=== PATIENT | female | born 1985 | race Caucasian/White ===

== ENCOUNTER 2020-01-13 08:59 | Day surgery (SDC) | payer BC ==
[2020-01-12 15:51] LABS: BASOPHILS % (AUTO) 0.2 % (0-1); EOSINOPHILS # (AUTO) 0.2 X10'3 (0-0.9); EOSINOPHILS % (AUTO) 1.4 % (0-6); LYMPHOCYTES # (AUTO) 2.5 X10'3 (1.1-4.8); LYMPHOCYTES % (AUTO) 21.9 % (21-51); MEAN CORPUSCULAR HEMOGLOBIN 29.1 PG (27.0-31.0); MEAN CORPUSCULAR HGB CONC 34.4 g/dL (33.0-36.5); MEAN CORPUSCULAR VOLUME 84.6 FL (78-98); MEAN PLATELET VOLUME 7.7 FL (7.4-10.4); MONOCYTES # (AUTO) 0.6 X10'3 (0-0.9); MONOCYTES % (AUTO) 5.5 % (2-12); PRE OP HEMATOCRIT 40.3 % (35.0-45.0); PRE OP HEMOGLOBIN 13.9 g/dL (12.0-16.0); PRE OP PLATELET COUNT 415 X10'3 (140-440); RED BLOOD COUNT 4.77 X10'6 (4.20-5.60)
[2020-01-12 16:16] LABS: ALBUMIN 3.5 G/DL (3.4-5.0); ALBUMIN/GLOBULIN RATIO 0.8 (1.1-1.5); ALKALINE PHOSPHATASE 65 IU/L (46-116); BLOOD UREA NITROGEN 12 MG/DL (7-18); BUN/CREATININE RATIO 12.4 (6.6-38.0); CALCIUM 9.2 MG/DL (8.5-10.1); CHLORIDE 101 MMOL/L (99-107); CREATININE 0.97 MG/DL (0.40-0.90); PRE OP ALT 21 U/L (30-65); PRE OP ANION GAP 9 (8-16); PRE OP AST 13 U/L (10-37); PRE OP BILIRUB, TOTAL 0.3 MG/DL (0.0-1.0); PRE OP GLUCOSE 165 MG/DL (70-104); PRE OP POTASSIUM 3.4 MMOL/L (3.4-5.1); PRE OP SODIUM 138 MMOL/L (135-145); TOTAL CARBON DIOXIDE 27.7 MMOL/L (24-32); eGFR 65 ML/MIN
[2020-01-12 16:47] LABS: HCG SERUM QL NEGATIVE
[2020-01-13] VITALS (10 sets, daily range): BP systolic 125–170; BP diastolic 74–98
[~2020-01-13] VITALS: Ht 162.6 cm; Wt 97.5 kg
[~2020-01-13 08:59] MED LIST: ATOR20TA66 PO; CHLO25TA10 PO; INDOCYANINE GREEN 25 MG/10 ML VIAL IV ONE; LOSA50TA64 PO; NORE1PAT7 TOP; SPIR25TA5 PO; cefazolin/dext.iso 2gm/50ml 50 ML IV ONE; famotidine 20mg tablet PO ONE; ringers solution, lacted 1,000 ML IV SCH
[2020-01-13] MEDS ORDERED: ringers solution, lacted 1,000 ML IV SCH (10:00)
[2020-01-13] MEDS ORDERED: ondansetron/PF 4mg/2ml inj IV PRN (10:00)
[2020-01-13] MEDS ORDERED: morphine 4 MG/ML inj SYRINge IV PRN (10:00)
[2020-01-13] MEDS ORDERED: meperidine/PF 25mg/ml syringe IV PRN ×2 (10:00)
[2020-01-13] MEDS ORDERED: morphine 2 MG/ML inj. syringe IV PRN (10:00)
[2020-01-13] MEDS ORDERED: proCHLORperazine 10 MG/2 ml inj IV PRN (10:00)
[2020-01-13] MEDS ORDERED: INDOCYANINE GREEN 25 MG/10 ML VIAL IV ONE (10:05)
[2020-01-13] MEDS ORDERED: BUPIVAcaine/PF 2.5 mg/ml (0.25%) 30ml vial ONE (11:51)
[2020-01-13] MEDS ORDERED: LIDOcaine 1% 30ml preserv. free vial ONE (11:51)
[2020-01-13] MEDS ORDERED: glycopyrrolate 0.2mg/ml inj ONE (12:02)
[2020-01-13] MEDS ORDERED: sevoflurane 250ml liquid IH ONE (12:02)
[2020-01-13] MEDS ORDERED: neostigmine methylsulfate 1 MG/ML 10ml vial ONE (12:02)
[2020-01-13] MEDS ORDERED: propofol inj 20 ML IV ONE (12:04)
[2020-01-13] MEDS ORDERED: midazolam 2 mg/2 ml injection ONE (12:04)
[2020-01-13] MEDS ORDERED: rocuronium 10mg/ml inj IV ONE (12:04)
[2020-01-13] MEDS ORDERED: fentaNYL/PF 50MCG/1 ML 2ML syringe ONE ×2 (12:04)
[2020-01-13] MEDS ORDERED: dexamethasone sod phosphate 4mg/ml inj. ONE (13:34)
[2020-01-13] MEDS ORDERED: ondansetron/PF 4mg/2ml inj ONE (13:34)
[2020-01-13] MEDS ORDERED: oxyCODONE/APAP 5-325mg tablet PO PRN ×2 (13:55)
--- NOTE | 2020-01-13 14:00 | NUR ---
Received from OR via BED , accompanied by Anesthesiologist DR MENDOZA and report given by Anesthesiolgist. PATIENT WAKING UP, DENIES PAIN, V/S WNL, NEUROVASCULAR CHECKS INTACT, 20G PIV RUE, SCD ON, BANDAIDS TO LAP SIGHTS OF ABDOMEN CDI.
[2020-01-13] MEDS: meperidine/PF 25mg/ml syringe IV PRN ×2 (14:15→14:42)
--- NOTE | 2020-01-13 16:00 | NUR ---
PATIENT A&OX4, DENIES PAIN, V/S WNL, NEUROVASCULAR CHECKS INTACT, 20G PIV RUE D/C, SCD OFF, BANDAIDS TO LAP SIGHTS OF ABDOMEN CDI.. I HAVE REVIEWED D/C INSTRUCTIONS AND GIVEN SCRIPT FOR PAIN TO PATIENT AND FAMILY HAVE VERBALIZED UNDERSTANDING.PATIENT WAS D/C HOME WITH ALL BELONGINGS AND FAMILY GAVE TRANSPORT HOME.
== END 2020-01-13 16:00 | disposition home or self-care (01) ==
LOC: PAS 08:59
PROVIDERS: ATTEND Surgery
DX: K80.12 Calculus of gallbladder with acute and chronic cholecystitis without obstruction (principal); I10 Essential (primary) hypertension; E78.5 Hyperlipidemia, unspecified; Z79.899 Other long term (current) drug therapy; E66.9 Obesity, unspecified; Z68.38 Body mass index [BMI] 38.0-38.9, adult
CPT/HCPCS: 36415; 47563; 80053; 82948; 84703; 85025; 93005; J1100; J2001; J2175; J2250; J2405; J2704; J3010; J3490; S2900; A4215; A4618; J2710; J7120